=== PATIENT | female | born 1935 | race Caucasian/White ===

== ENCOUNTER → 2016-06-02 | Outpatient (CLI) | payer MEDICARE ==
[~2016-06-02] MED LIST: AMBIEN5 MG PO; ASA CHILDREN'S81 MG PO; ATIVAN0.5 MG PO; BACTRIM DS DPS1 TAB PO; COLACE100 MG PO; DELTASONE DPS20 MG PO; FUROSEMIDE40 MG PO; KEFLEX500 MG PO; NORVASC5 MG PO; OYSTER SHELL 51 EACH PO; PEPCID20 MG PO; PROAIR HFA8.5 GM IH; SYNTHROID75 MCG PO; THERA1 EACH PO; TYLENOL325 MG PO; VITAMIN D1000 UNIT PO; XOPENEX1.25 MG/3 IH
== END | disposition home or self-care (01) ==
LOC: RAD.S 10:29
DX: Z12.31 Encounter for screening mammogram for malignant neoplasm of breast (principal)